=== PATIENT | female | born 2000 | race Caucasian/White ===

== ENCOUNTER 2021-09-20 15:45 | Emergency (ER) | payer OTHER ==
[~2021-09-20] VITALS: Ht 165.1 cm; Wt 68.0 kg
[2021-09-20] MEDS ORDERED: LORAZEPAM 0.5 MG TABLET PO ONE (16:00)
[2021-09-20] MEDS ORDERED: LORAZEPAM 0.5 MG TABLET ONE (16:07)
[2021-09-20 16:09] LABS: HEMATOCRIT 38.8 % (31.2-41.9); MEAN CORPUSCULAR HEMOGLOBIN 30.9 uug (24.7-32.8); MEAN CORPUSCULAR VOLUME 89.2 fL (75.5-95.3); PLATELET COUNT (AUTO) 256 K/uL (179-408)
[2021-09-20 16:12] LABS: CREATININE 0.8 mg/dL (0.6-1.3); POTASSIUM 3.7 mmol/L (3.5-5.1)
[2021-09-20 16:17] LABS: BILIRUBIN,TOTAL 0.5 mg/dL (0.2-1.0)
[2021-09-20 16:24] LABS: *BILIRUBIN,URIN NEGATIVE (NEGATIVE); *BLOOD, URINE 2+ (NEGATIVE); *CLARITY,URINE CLEAR (CLEAR); *COLOR,URINE YELLOW (YELLOW); *KETONES,URINE NEGATIVE (NEGATIVE); *UROBILINOGEN,URINE 0.2 E.U./dl (NORMAL); LEUKOCYTE ESTERASE ,URINE TRACE (NEGATIVE); NITRITE, URINE NEGATIVE (NEGATIVE); PH,URINE 6.5 (5.0-8.0); UGLUCOSE NEGATIVE (NEGATIVE)
[2021-09-20 16:26] LABS: *URINE HCG, QUAL NEG (NEGATIVE)
--- NOTE | 2021-09-20 16:45 | NUR ---
Patient discharged to home in stable condition with steady gait. Written and verbal after care instructions given to patient. Patient verbalized understanding and compliance of instructions. Stressed follow up with primary doctor and/or psychiatrist or return to ER for worsening s/s.
[2021-09-20 20:49] LABS: BACTERIA,URINE NONE SEEN /HPF (NONE SEEN); SQUAMOUS EPITHELIAL CELL,UR FEW /HPF (NONE SEEN)
== END 2021-09-20 16:46 | disposition home or self-care (01) ==
LOC: ER 15:51
DX: F41.9 Anxiety disorder, unspecified (principal)
CPT/HCPCS: 36415; 83690; 84703; 85025; 93005; A4663